=== PATIENT | female | born 1995 | race Caucasian/White ===

== ENCOUNTER 2024-08-16 18:33 | Emergency (ER) | payer OTHER, SELFPAY ==
[2024-08-16 18:35] VITALS: BP 145/91; PULSE 78; RESP 14; TEMP 36.4; O2SAT 99; BMI 29.0
[2024-08-16 19:23] LABS: Mucous, Urine 0 SEEN /hpf (<or=2+)
[2024-08-16 19:25] LABS: Color, Urine Yellow (Yellow); Glucose, Dipstick Normal (Normal); Ketone-Dipstick Negative (Negative); Leukocyte Esterase-Dipstick Negative /ul (Negative); Nitrite-Dipstick Negative (Negative); Occult Blood-Urine 25 /ul (Negative); Protein-Dipstick Negative (Negative); Urine Bilirubin Dipstick Negative (Negative); Urine Clarity Sl. Cloudy (Clear); Urine Urobilinogen Normal (Normal)
[2024-08-16 19:38] LABS: Bacteria RARE /hpf (None Seen); Red Blood Cells-Urine 5-10 SEEN /hpf (0-5); Squamous Epithelial Cells - UA 0-5 SEEN /hpf (5-10); White Blood Cells 0-5 SEEN /hpf (0-5)
--- NOTE | 2024-08-16 20:30 | US_ITS ---
PROCEDURE: Ultrasound abdomen limited right upper quadrant REASON FOR EXAM: Right upper quadrant pain. COMPARISON: None FINDINGS: Liver: Liver demonstrates normal size and echogenicity measuring 16.3 cm. Gallbladder: No stones, sludge, wall thickening or tenderness. Common bile duct: Normal measuring 4.0 mm.. Pancreas: Visualized portions are sonographically unremarkable. Visualized portions of the right kidney are unremarkable. Right kidney measures 13 cm in the long axis. No right upper quadrant ascites. US/Gallbladder IMPRESSION: NORMAL RIGHT UPPER QUADRANT ULTRASOUND. Reading Location: [facility]
--- NOTE | 2024-08-16 20:31 | EX.ED.DYSGE1 ---
HPI History of Present Illness Chief Complaint: GI Bleed Detail of Chief Complaint: Hematuria not GI bleed Informant: patient Onset/Context/Timing Onset: Today and Days (When I noted patient was complaining of pain she was reevaluated. She is now has pain right upper quadrant epigastric area. She does have intolerance to greasy and fried foods.) Context: Sudden Onset Timing: Intermittent Quality: Suprapubic pain and right upper quadrant pain Location: Suprapubic and right upper quadrant Current Severity: Mild Maximum Severity: Severe Worsened by: [place] and fried foods Relieved by: Nothing Associated Symptoms Associated Symptoms: No fever or chills Narrative Narrative: Patient is a 28-year-old female. She presents because of hematuria. She has put on GI bleed. She has not had black or maroon-colored stool. She states it is dark. She denies orthostatic symptoms. She developed pain in the department. She is not complaining of right upper quad epigastric pain. She had a CAT scan of her abdomen because of left flank pain. She was told that was negative. This was done at outside facility. She denies fever, chills night sweats. There is no known family history cholelithiasis. She denies fever or chills. She denies respiratory or cardiac symptoms. She denies dysuria, frequency or urgency. Prior similar symptoms: Yes (Upper abdominal pain not the hematuria) Recent Illness/Hospitalization: [facility] Medical History PCOS (polycystic ovarian syndrome) Home Medications ?Medication ?Instructions ?Recorded ?Last Taken ?Type omeprazole 40 mg capsule,delayed 40 mg PO DAILY #30 caps 08/16/24 Unknown Rx release Allergy/AdvReac Type Severity Reaction Status Date / Time amoxicillin Allergy Mild Rash Verified 08/16/24 18:35 Surgical History Hx of appendectomy Social History Smoking Status: Never smoker ROS ROS ED Constitutional Constitutional ED: Denies chills, fever(s), subjective, sweats or weight loss Eyes Eyes: Denies blurry vision, change in vision or diplopia ENT ENT ED: Denies ear pain, rhinorrhea or sore throat Cardiovascular Cardiovascular: Denies chest pain, orthopnea, palpitations, paroxysmal nocturnal dyspnea or racing heartbeat Respiratory/Chest Respiratory/Chest: Denies cough, dyspnea, dyspnea on exertion, orthopnea or paroxysmal nocturnal dyspnea Gastrointestinal Gastrointestinal: Reports other Details: Dark stool. ; Denies abdominal pain, diarrhea, nausea or vomiting Genitourinary Genitourinary ED: Reports hematuria; Denies dysuria or urinary frequency Musculoskeletal Musculoskeletal: Denies arthralgias or myalgias Integumentary Denies abscess Neurologic Neurologic: Denies headache(s), paresthesias or weakness Psychiatric Psychiatric: Denies anxiety or depression Endocrine Endocrinology: Denies cold intolerance or heat intolerance Hematologic/Lymphatic Hematologic/Lymphatic: Denies systems reviewed and no addt'l complaints, except as documented EXAM Physical Exam Const Vital Signs: 08/16/24 18:35 08/16/24 20:43 08/16/24 22:00 Temperature 97.6 F L Temperature Source Temporal Pulse Rate 78 68 62 Respiratory Rate 14 15 15 Blood Pressure 145/91 H 130/80 H 106/72 Blood Pressure Mean 109 96 83 Pulse Ox 99 100 100 Oxygen Delivery Method Room Air Room Air Room Air Positive well nourished and well developed General Appearance ED: well developed and NAD; Negative for cyanotic or diaphoretic HEENT Reports moist mucous membranes HEENT Narrative: Head is normal cephalic atraumatic. Ears normal. Nares patent. Posterior pharynx is normal. Eyes PERRL and EOMs intact bilaterally Neck no lymphadenopathy, supple and no JVD Resp normal respiratory effort and clear to auscultation bilaterally Cardio regular rate, regular rhythm, S1 normal heart sound, S2 normal heart sound and no murmurs GI normal to inspection, nondistended, normoactive bowel sounds, non-tender, non-distended and no masses; Negative for hepatosplenomegaly GI Narrative: When patient was reexamined at 1830 she has significant right upper quadrant pain with a clinical Qureshi sign. In light of the intolerance to greasy foods the right upper quadrant pain ultrasound was obtained. She last ate at 1300. Auscultation: normoactive bowel sounds Palpation: soft and tender suprapubic (Initially patient had suprapubic discomfort.) Back/Spine no CVA tenderness Extremity normal to inspection Neuro oriented x3, CN's II-XII intact bilaterally and no sensory deficits noted Sensorium / Orientation: alert Motor Exam: strength 5/5 throughout Psych mental status grossly normal Skin no rashes or lesions noted, no wounds and skin turgor normal General Skin Exam: elasticity normal MDM MDM MDM Narrative Medical decision making narrative: Complaint of hematuria UA was obtained. UA is unremarkable. She admits that she initially did not tell me she had a CAT scan as an outpatient several days ago. With her now having right upper quadrant pain CBC, liver and lipase was ordered as well as ultrasound. Initial differential was hemorrhage cystitis, urinary tract infection, ureteral stone, doubt pyelonephritis. Now with right upper quadrant pain intolerance greasy fried food need to rule out cholelithiasis with colic, cholecystitis liver disease. Because she is having significant pain she was treated with IV Toradol. Lab Data Attestation: I reviewed the patient's lab results. Lab results narrative: Urinalysis is unremarkable. White count is normal. Differential is normal. Liver enzymes are normal. Lipase is low. Labs: Laboratory Results - last 24 hr 08/16/24 08/16/24 19:01 19:14 WBC 11.0 RBC 4.47 Hgb 12.8 Hct 39.9 MCV 89.3 MCH 28.6 MCHC 32.1 RDW Std Deviation 45.1 H RDW Coeff of [place] 13.8 Plt Count 296 MPV 10.9 Immature Gran % (Auto) 0.300 Neut % (Auto) 61.4 Lymph % (Auto) 27.4 [place] % (Auto) 8.2 Eos % (Auto) 2.2 Baso % (Auto) 0.5 Absolute Neuts (auto) 6.8 Absolute Lymphs (auto) 3.02 Nucleated RBC % 0 Total Bilirubin 0.30 Direct Bilirubin 0.12 AST 12 L ALT 19 Alkaline Phosphatase 88 Total Protein 8.1 Albumin 3.7 Globulin 4.4 H Lipase 50 L Urine Color Yellow Urine Clarity Sl. Cloudy Urine pH 7.0 Ur Specific [place] 1.010 Urine Protein Negative Urine Glucose (UA) Normal Urine Ketones Negative Urine Occult Blood 25 H Urine Nitrite Negative Urine Bilirubin Negative Urine Urobilinogen Normal Ur Leukocyte Esterase Negative Urine RBC 5-10 SEEN Urine WBC 0-5 SEEN Ur Squamous Epith Cells 0-5 SEEN Urine Bacteria RARE Urine Mucus 0 SEEN Radiography Diagnostic Testing: Clinical Impression(s) from Imaging Studies Gallbladder Ultrasound 08/16/24 20:30 IMPRESSION: NORMAL RIGHT UPPER QUADRANT ULTRASOUND. Reading Location: [facility] Treatment and Re-Evaluation :: Patient was made aware of laboratory results and ultrasound results. Since patient had a recent CAT scan of the abdomen was negative for renal ureteral calculi and a normal ultrasound doubt biliary disease. She did report improvement with IV Pepcid and GI cocktail. She was discharged to home with prescription for PPI. She is not better in 1 to 2 weeks she was instructed follow-up with her physician Dr. Fraga for GI referral or HIDA scan. Discharge Plan Triage Chief Complaint: GI Bleed ED Provider: Carlos Moore Dx/Rx/DC Orders Clinical Impression: Right upper quadrant abdominal pain, Hematuria Instructions: ED Abdominal Pain Unkn Cause Fem Prescriptions: New omeprazole 40 mg capsule,delayed release(DR/EC) 40 mg PO DAILY Qty: 30 0RF Primary Care Provider: Gisselle Fraga Referrals: Gisselle Fraga, DO [Primary Care Provider] - 1 Week if not improving Print Language: [place]ian Disposition Disposition: Home, Self Care
[2024-08-16] MEDS: Ketorolac 15 MG/ML Vial IV (20:42)
[2024-08-16 20:43] VITALS: BP 130/80; PULSE 68; RESP 15; O2SAT 100
[2024-08-16 20:59] LABS: AST(SGOT) 12 U/L (15-37); Alanine Aminotransfer ALT/SGPT 19 U/L (13-56); Albumin, Serum 3.7 g/dL (3.2-5.0); Alkaline Phosphatase 88 U/L (45-117); Bilirubin, Direct 0.12 mg/dL (0.00-0.30); Globulin 4.4 g/dL (2.2-4.2); Lipase 50 U/L (73-393); Protein, Total 8.1 g/dL (6.4-8.2)
[2024-08-16 21:10] LABS: Absolute Lymphocyte Count 3.02 X10^3/uL (0.83-4.51); Absolute Neutrophil Count 6.8 X10^3/uL (2.0-7.7); Basophil# 0.05 X10^3/uL; Basophil% 0.5 % (0-1); Eosinophil# 0.24 X10^3/uL; Eosinophils% 2.2 % (0-5); Hematocrit 39.9 % (37-47); Hemoglobin 12.8 g/dL (12.0-15.0); Lymphocyte # 3.02 X10^3/ul (0.83-4.51); Lymphocyte % 27.4 % (19-41); Mean Corp Hgb Conc 32.1 g/dL (32-36); Mean Corpuscular Hgb 28.6 pg (27.0-32.0); Mean Corpuscular Volume 89.3 fL (81-99); Mean Platelet Vol. 10.9 fl (6.2-12.0); Monocyte% 8.2 % (0-10); NRBC Flagged by Analyzer 0 % (0-5); Neutrophil # 6.78 X10^3/uL (2.7-7.7); Neutrophil % 61.4 % (47-70); Platelet Count 296 K/mm3 (150-450); RBC Distribution Width CV 13.8 % (11.6-14.6); RBC Distribution Width SD 45.1 fl (35.1-43.9); Red Blood Count 4.47 M/mm3 (4.2-5.4)
[2024-08-16] MEDS: Lidocaine 2% Viscous15 ML UDC 15 ML PO (21:23)
[2024-08-16] MEDS: Mag Hydrox/Al Hydrox/Simeth 30 ML UDC PO (21:23)
[2024-08-16] MEDS: Famotidine 200 MG/20 ML MDV 20 MG in 0.9% Normal Saline (Pres. free 8 ML 300 MG IV (21:23)
[2024-08-16 22:00] VITALS: BP 106/72; PULSE 62; RESP 15; O2SAT 100
[2024-08-16 23:01] VITALS: BP 117/74; PULSE 74; RESP 15; TEMP 36.8; O2SAT 99
== END 2024-08-16 23:02 | disposition home or self-care (01) ==
PROVIDERS: Emergency Provider Emergency Medicine; PCP Student in an Organized Health Care Education/Training Program; Visit Provider Emergency Medicine
DX: R10.11 Right upper quadrant pain (principal); R31.9 Hematuria, unspecified
CPT/HCPCS: 76705; 80076; 81001; 83690; 85025; 96374; 96376; 99283; A4216